=== PATIENT | female | born 1970 | race Native Hawaiian/Other Pacific Islander ===

== ENCOUNTER 2021-04-28 19:50 | Emergency (ER) | payer BC ==
[~2021-04-28] VITALS: Ht 165.1 cm; Wt 65.8 kg
[2021-04-28 21:10] VITALS: BP 143/90; TEMP 98
== END 2021-04-28 21:10 | disposition home or self-care (01) ==
LOC: ED 19:50
PROC: 0HQFXZZ Repair Right Hand Skin, External Approach (ICD-10-PCS; principal; 2021-04-28)
DX: S61.411A Laceration without foreign body of right hand, initial encounter (principal); W22.8XXA Striking against or struck by other objects, initial encounter; Y92.89 Other specified places as the place of occurrence of the external cause
CPT/HCPCS: 90472; 90715; 99283

== ENCOUNTER 2021-12-30 14:04 | Outpatient (CLI) | payer BC | END 2021-12-30 20:17 | disposition home or self-care (01) | LOC: MAMMO 14:04 | PROVIDERS: ATTEND Obstetrics & Gynecology | DX: Z12.31 Encounter for screening mammogram for malignant neoplasm of breast (principal) ==